=== PATIENT | female | born 1985 | race Caucasian/White ===

== ENCOUNTER 2016-12-03 07:47 | Emergency (ER) | payer SELFPAY ==
[2016-12-03 08:00] VITALS: BP 164/84; PULSE 99; TEMP 98.9; BMI 33.5
== END 2016-12-03 11:53 | disposition left against medical advice (07) ==
LOC: ED 07:47 → EDMC 11:53
DX: K08.89 Other specified disorders of teeth and supporting structures (principal); Z53.21 Procedure and treatment not carried out due to patient leaving prior to being seen by health care provider
CPT/HCPCS: 99281